=== PATIENT | male | born 1965 ===

== ENCOUNTER 2020-12-04 09:18 | Emergency (ER) | payer OTHER ==
[~2020-12-04] VITALS: Ht 175.3 cm; Wt 101.0 kg
--- NOTE | 2020-12-04 09:31 | PHYS DOC ---
Past History Past Medical History: CVA, High Cholesterol Adult General Chief Complaint Chief Complaint: OVERDOSE HPI HPI Patient is a 55-year-old male who presents via long term for suspected overdose. Patient was found in his long term cell at 0743 hrs. altered with emesis around him on the ground. No known trauma, but it was suspected that patient took K2. Intranasal Narcan administered with minimal relief in symptoms, patient evaluated by nurse and found to be tachycardic approximately 120s and hypotensive with initial blood pressure reading 70/50. A total of 1.5 L IV normal saline administered with improvement in blood pressure. EMS was subsequently called and transported patient to our facility. There is no known trauma, no recent travel or known sick contacts, patient has not reported any symptoms to long term nursing staff and past 72 hours. He has been taking all prescribed medications daily, has history of [id number] diabetes, high cholesterol, and suspect bipolar based on home medication list. Review of Systems Review of Systems Unobtainable due to somnolent state Physical Exam Physical Exam Constitutional: Somnolent, alert and oriented to person only which is not at his baseline, appears under the influence of an illicit drug. GCS 13 (E3, V4, M6) HEENT: Head: Normocephalic and atraumatic. TMs clear, no hemotympanum Conjunctivae and EOM are normal. Pupils are equal, round, and reactive to light. Oropharynx is clear and moist. There is residual emesis around mouth and chery No hematomas or lacerations or abrasions to face or scalp OP clear, no blood, no malocclusion, dentition intact Nares clear, no nasal septal hematoma Midface stable Neck: C-spine midline nontender, no step-offs Cardiovascular: Normal rate, regular rhythm and normal heart sounds. Pulmonary/Chest: Effort normal and breath sounds normal. No respiratory distress. No wheezes. CTA bilaterally Abdominal: Soft. Bowel sounds are normal. Pt exhibits no distension. There is no ten derness. Musculoskeletal: No bony tenderness to extremities, no deformities, full ROM extremities Chest wall stable Pelvis stable and non-tender No vertebral TTP and spine without stepoffs Neurological: Pt is alert and oriented to person only which is not his baseline Moving all extremities willfully, able to wiggle all fingers and toes when asked, withdraws to painful stimuli appropriately Downgoing toes bilaterally Motor and sensory function grossly intact Skin: Skin is warm and dry. No abrasions, no lacerations Psychiatric: Unable to fully assess Current Patient Data Vital Signs Vital Signs Date Time Temp Pulse Resp B/P (MAP) Pulse Ox O2 Delivery O2 Flow Rate FiO2 12/04/20 09:51 97.5 82 16 86/53 (64) 92 NonRebreather Mask 15.0 Vital Signs Date Time Temp Pulse Resp B/P (MAP) Pulse Ox O2 Delivery O2 Flow Rate FiO2 12/04/20 09:51 97.5 82 16 86/53 (64) 92 NonRebreather Mask 15.0 Lab Results Laboratory Tests Test 12/04/20 09:30 12/04/20 09:38 12/04/20 09:46 White Blood Count 7.1 x10^3/uL Red Blood Count 4.21 x10^6/uL Hemoglobin 12.7 g/dL Hematocrit 38.3 % Mean Corpuscular Volume 91 fL Mean Corpuscular Hemoglobin 30 pg Mean Corpuscular Hemoglobin Concent 33 g/dL Red Cell Distribution Width 14.0 % Platelet Count 141 x10^3/uL Neutrophils (%) (Auto) 87 % Lymphocytes (%) (Auto) 9 % Monocytes (%) (Auto) 4 % Eosinophils (%) (Auto) 1 % Basophils (%) (Auto) 0 % Neutrophils # (Auto) 6.2 x10^3uL Lymphocytes # (Auto) 0.6 x10^3/uL Monocytes # (Auto) 0.3 x10^3/uL Eosinophils # (Auto) 0.0 x10^3/uL Basophils # (Auto) 0.0 x10^3/uL Sodium Level 146 mmol/L Potassium Level 4.7 mmol/L Chloride Level 110 mmol/L Carbon Dioxide Level 26 mmol/L Anion Gap 10 Blood Urea Nitrogen 10 mg/dL Creatinine 1.2 mg/dL Estimated GFR (Cockcroft-Gault) 63.1 Glucose Level 179 mg/dL Lactic Acid Level 2.0 mmol/L Calcium Level 8.4 mg/dL Ammonia 22 mcmol/L Creatine Kinase 133 U/L Troponin I Quantitative < 0.017 ng/mL GO-Dhe-U-Type Natriuretic Peptide 17 pg/mL Salicylates Level < 2.8 mg/dL Salicylate Last Dose Date Unk Salicylate Last Dose Time Unk Acetaminophen Level < 2.0 mcg/mL Acetaminophen Last Dose Date Unk Acetaminophen Last Dose Time Unk Ethyl Alcohol Level < 10 mg/dL Bedside Venous pH 7.32 Bedside Venous pCO2 47 mmHg Bedside Venous pO2 43 mmHg Venous Blood HCO3 24 mmol/L POC Venous O2 Saturation (Evelin) 74 % Bedside FiO2 100 Urine Collection Type Unknown Urine Color Yellow Urine Clarity Hazy Urine pH 7.0 Urine Specific [place] 1.020 Urine Protein 30 mg/dl Urine Glucose (UA) Neg mg/dL Urine Ketones (Stick) Neg mg/dL Urine Blood Neg Urine Nitrite Neg Urine Bilirubin Neg Urine Urobilinogen Dipstick 0.2 mg/dL Urine Leukocyte Esterase Neg Urine RBC 0 /HPF Urine WBC 0 /HPF Urine Squamous Epithelial Cells Few /LPF Urine Bacteria 0 /HPF Urine Hyaline Casts Mod /HPF Urine Mucus Slight /LPF Urine Opiates Screen Neg Urine Methadone Screen Neg Urine Barbiturates Neg Urine Phencyclidine Screen Neg Urine Amphetamine/Methamphetamine Pos Urine Benzodiazepines Screen Neg Urine Cocaine Screen Neg Urine Cannabinoids Screen Neg Urine Ethyl Alcohol Neg Current Medications Medications (Trade) Dose Ordered Sig/Vidal Route PRN Reason Start Time Stop Time Status Last Admin Dose Admin Sodium Chloride 1,000 ml @ 1,000 mls/hr 1X ONCE IV 12/04/20 09:45 12/04/20 10:44 DC 12/04/20 09:45 Amoxicillin/ Clavulanate Potassium (Augmentin 875/ 125mg) 1 tab 1X ONCE PO 12/04/20 10:15 12/04/20 10:36 DC 12/04/20 10:46 EKG EKG EKG ordered and interpreted by myself at 0930 hrs. as sinus rhythm at 84 bpm, unremarkable intervals, no acute ischemic findings, no STEMI Radiology/Procedures Radiology/Procedures EXAM: CT head without contrast INDICATION: Overdose COMPARISON: None TECHNIQUE: Axial CT imaging through the head without intravenous contrast. One or more of the following individualized dose reduction techniques were uti lized for this examination: 1. Automated exposure control 2. Adjustment of the mA and/or kV according to patient size 3. Use of iterative reconstruction technique. FINDINGS: The ventricles and sulci are normal Thomson-white matter differentiation is main tained. There is no intracranial hemorrhage, acute infarct, or mass lesion. Basal cisterns are clear. The calvarium is intact. Mild mucosal thickening in the visualized paranasal sinuses. Mastoid air cells are clear. Globes and orbits are intact. IMPRESSION: No acute intracranial abnormality Electronically signed by: Emelia Zamora MD (12/04/2020 9:56 AM) [id number] ////////////////////////////////////// EXAM: XR CHEST 1V 12/04/2020 9:31 AM CLINICAL INDICATION: Overdose COMPARISON: None TECHNIQUE: AP view of the chest FINDINGS: The heart and mediastinum are normal. Lungs are hypoexpanded. There are left retrocardiac opacities. The right lung is clear. No definite pleural effusion or pneumothorax. No acute osseous abnormality. IMPRESSION: Hypoexpanded lungs. Left retrocardiac opacities, which could be atelectasis or aspiration. Electronically signed by: Emelia Zamora MD (12/04/2020 9:58 AM) [id number] Heart Score C/O Chest Pain: No HEART Score for Chest Pain: HEART Score for Chest Pain Response (Comments) Value History Slighlty/Non-Suspicious 0 ECG Normal 0 Age >45 - < 65 1 Risk Factors 1 or 2 Risk Factors 1 Troponin < Normal Limit 0 Total 2 Risk Factors: Risk Factors: DM, Current or recent (<one month) smoker, HTN, HLP, family history of CAD, obesity. Risk Scores: Risk Factors: DM, Current or recent (<one month) smoker, HTN, HLP, family history of CAD, obesity. Course & Med Decision Making Course & Med Decision Making Patient initially dependent on oxygen and hypotensive on arrival with limited history obtainable per patient. Per long term nurse that handled patient, there was known K2 consumption and overdose. Physical examination grossly nonconcerning for any emergent or surgical pathology Comprehensive ER work-up performed, grossly nonconcerning, presentation likely due to K2 consumption and positive amphetamine via a UDS which patient denies. Patient responded to supportive care while in ER with improvement of hypotension with 1 L IV normal saline administered. Patient was continuously monitored and mentation improved, was at baseline AAO x3 and well-appearing at time of discussing ER visit with him. Peers per radiographs and report that patient likely aspirated. As such, joint decision made to start treatment with Augmentin Discussed role of potential observation but given that patient is at baseline, well-appearing, hemodynamically stable and tolerating p.o. intake, joint decision made to transfer back to long term for continued outpatient medical ma nagement of aspiration pneumonia Strict return precautions discussed with good understanding by patient, all questions and concerns addressed prior to ER departure. Patient advised to discontinue illicit drug use Esteban Disclaimer Esteban Disclaimer This electronic medical record was generated, in whole or in part, using a voice recognition dictation system. Departure Departure: Impression: Primary Impression: Synthetic cannabinoid intoxication Additional Impressions: Aspiration pneumonia due to vomit Drug-induced delirium Polysubstance abuse Disposition: 01 DC HOME SELF CARE/HOMELESS Condition: IMPROVED Patient Instructions: Aspiration Pneumonia, Drug Abuse, FAQs Additional Instructions: As discussed prior to your departure, your presenting condition was likely due to known K2 ingestion. You likely aspirated vomit that was present on radiograph of your chest, because of this, there is concern of further infection and so decision was made to treat you with an antibiotic. Please take prescribed Augmentin medication twice daily for 5 days total. You will need repeat evaluation by your nurse/physician at long term to ensure continued symptomatic resolution. At present, there is no indication for further diagnostic work-up while in ER setting. If any concerning signs or symptoms present prior to outpatient follow-up please do not hesitate to come back for repeat evaluation. It was a pleasure to take care of you and I wish you a speedy recovery Scripts Amoxicillin/Potassium Clav (AUGMENTIN 875-125 TABLET) 1 Each Tablet 1 TAB PO BID for ASPIRATION PNA for 5 Days, #10 TAB 0 Refills Prov: GENIA JOHNSON DO 12/04/20 Problem Qualifiers GENIA JOHNSON DO Dec 04, 2020 09:31
[2020-12-04] MEDS ORDERED: IV NORMAL SALINE 1,000ML 1,000 ML IV ONE (09:45)
[2020-12-04 09:51] VITALS: BP 86/53
[2020-12-04 09:53] LABS: BASO % 0 % (0-3); EOS % 1 % (0-3); HEMATOCRIT 38.3 % (39.0-53.0); HEMOGLOBIN 12.7 g/dL (13.0-17.5); LYMPH # 0.6 x10^3/uL (1.0-4.8); LYMPH % 9 % (24-48); MEAN CORPUSCULAR HEMOGLOBIN 30 pg (25-35); MEAN CORPUSCULAR HGB CONC 33 g/dL (31-37); MEAN CORPUSCULAR VOLUME 91 fL (79-100); MONO # 0.3 x10^3/uL (0.0-1.1); MONO % 4 % (0-9); NEUT # 6.2 x10^3uL (1.8-7.7); NEUT % 87 % (31-73); PLATELET COUNT 141 x10^3/uL (140-400); RED BLOOD COUNT 4.21 x10^6/uL (4.30-5.70); WHITE BLOOD COUNT 7.1 x10^3/uL (4.0-11.0)
--- NOTE | 2020-12-04 09:58 | RAD ---
EXAM: CT head without contrast INDICATION: Overdose COMPARISON: None TECHNIQUE: Axial CT imaging through the head without intravenous contrast. One or more of the following individualized dose reduction techniques were utilized for this examinat ion: 1. Automated exposure control 2. Adjustment of the mA and/or kV according to patient size 3. Use of iterative reconstruction technique. FINDINGS: The ventricles and sulci are normal Thomson-white matter differentiation is maintained. There is no intr acranial hemorrhage, acute infarct, or mass lesion. Basal cisterns are clear. The calvarium is intact . Mild mucosal thickening in the visualized paranasal sinuses. Mastoid air cells are clear. Globes an d orbits are intact. IMPRESSION: No acute intracranial abnormality Electronically signed by: Emelia Zamora MD (12/04/2020 9:56 AM) [id number]
--- NOTE | 2020-12-04 10:00 | RAD ---
EXAM: XR CHEST 1V 12/04/2020 9:31 AM CLINICAL INDICATION: Overdose COMPARISON: None TECHNIQUE: AP view of the chest FINDINGS: The heart and mediastinum are normal. Lungs are hypoexpanded. There are left retrocardiac opacities. The right lung is clear. No definite pleural effusion or pneumothorax. No acute osseous ab normality. IMPRESSION: Hypoexpanded lungs. Left retrocardiac opacities, which could be atelectasis or aspiration . Electronically signed by: Emelia Zamora MD (12/04/2020 9:58 AM) [id number]
[2020-12-04 10:02] LABS: CALCIUM 8.4 mg/dL (8.5-10.1); CREATININE 1.2 mg/dL (0.7-1.3); GFR 63.1; POTASSIUM 4.7 mmol/L (3.5-5.1)
[2020-12-04] MEDS ORDERED: AMOXICILLIN/K CLAV 875/125MG TABLET. PO ONE (10:15)
[2020-12-04 10:28] LABS: ACETAMIN < 2.0 mcg/mL (10-30); ETHANOL < 10 mg/dL (0-10); SALIC < 2.8 mg/dL (2.8-20.0)
[2020-12-04 10:47] LABS: AMPHETAMINE/METHAMPHETAMINE POS (NEG); BARBITURATES NEG (NEG); BENZODIAZEPINES NEG (NEG); CANNABINOIDS NEG (NEG); COCAINE NEG (NEG); METHADONE NEG (NEG); OPIATES NEG (NEG); PHENCYCLIDINE NEG (NEG)
[2020-12-04 10:50] LABS: BACTERIA,URINE 0 /HPF (0-FEW); BILIRUBIN,URINE NEG (NEG); CLARITY,URINE HAZY; COLOR,URINE YELLOW; GLUCOSE,URINE NEG (NEG); HYALINE CASTS, URINE MOD /HPF; NITRITE,URINE NEG (NEG); RBC,URINE 0 /HPF (0-2); SQUAMOUS EPITHELIAL CELL,UR FEW /LPF; UROBILINOGEN,URINE 0.2 mg/dL (0.2 mg/dL); WBC,URINE 0 /HPF (0-4)
[2020-12-04] MEDS ORDERED: AMOX1TAB61 PO (10:50)
--- NOTE | 2020-12-04 14:07 | EKG ---
[address] [address] Test Date: 2020-12-04 Test Time: 09:23:22 Pat Name: THERESA FONTANEZ Department: Room: Gender: M Score Caller: SANIA : [id number] Requested By: GENIA JOHNSON Order Number: [id number] Reading MD: Measurements Intervals [place] Rate: 84 P: 41 ND: 164 QRS: 22 QRSD: 86 T: 7 QT: 386 QTc: 460 Interpretive Statements SINUS RHYTHM T ABNORMALITY IN ANTEROSEPTAL LEADS ABNORMAL ECG RI6.02 Compared to ECG 12/04/2020 08:27:39 First degree AV block no longer present Prolonged QT interval no longer present T-wave abnormality still present
== END 2020-12-04 11:27 | disposition home or self-care (01) ==
LOC: EEVIPCON 09:18 → ER 09:18
DX: J69.0 Pneumonitis due to inhalation of food and vomit (principal); F12.929 Cannabis use, unspecified with intoxication, unspecified; F19.921 Other psychoactive substance use, unspecified with intoxication with delirium; E11.9 Type 2 diabetes mellitus without complications; E78.00 Pure hypercholesterolemia, unspecified; Z86.73 Personal history of transient ischemic attack (TIA), and cerebral infarction without residual deficits
CPT/HCPCS: 36415; 70450; 71045; 80048; 80307; 80329; 81001; 82140; 82550; 82803; 83605; 83880; 84484; 85025; 87040; 93005; 96360; 96361; 99285; G0480; J7030